=== PATIENT | male | born 1990 | race Hispanic/Latino ===

== ENCOUNTER 2023-06-28 06:35 | Day surgery (SDC) | payer BC ==
[2023-06-28] MEDS ORDERED: Ringers Lactate 1,000 ML IV ONE (07:09)
[2023-06-28] MEDS ORDERED: OXYMETAZOLINE HCL 0.05% 15ML NAS ONE (07:09)
[2023-06-28] MEDS: OXYMETAZOLINE HCL 0.05% 15ML NAS ONE ×4 (07:20→08:59)
[2023-06-28] MEDS ORDERED: NA CHLORIDE 0.9% 1,000 ML ONE (08:05)
[2023-06-28] MEDS ORDERED: NA CHLORIDE 0.9% 500 ML ONE (08:05)
[2023-06-28] MEDS: LIDOCAINE HCL/EPINEPHRINE 20 ML MDV ONE ×2 (08:12→08:59)
[2023-06-28] MEDS ORDERED: propofoL 200 MG/20 ML VIAL IV ONE (08:19)
[2023-06-28] MEDS ORDERED: ONDANSETRON 4 MG/2 ML VIAL ONE (08:19)
[2023-06-28] MEDS ORDERED: dexAMETHasone 10 MG/ML VIAL ONE (08:19)
[2023-06-28] MEDS ORDERED: ROCURONIUM 50 MG/5 ML VIAL IV ONE (08:19)
[2023-06-28] MEDS ORDERED: LIDOCAINE 2% MPF 5 ML VIAL ONE (08:19)
[2023-06-28] MEDS ORDERED: MIDAZOLAM HCL 2 MG/2 ML INJ ONE (08:19)
[2023-06-28] MEDS ORDERED: KETOROLAC 30 MG/ML INJ ONE (08:19)
[2023-06-28] MEDS ORDERED: FENTANYL CITR 100 MCG/2 ML ONE (08:19)
[2023-06-28] MEDS ORDERED: LANO/MINERAL OIL/PETRO 3.5 GM ONE (10:26)
--- NOTE | 2023-06-28 10:42 | P.OP ---
Medical Coding Instructor: NONE,NONE Preoperative diagnosis: Deviated nasal septum, inferior turbinate hypertrophy, enrico amadeo bullosa Postoperative diagnosis: Same Primary procedure: Septoplasty Secondary procedure: Nasal endoscopy with bilateral amadeo bullosa resection Other procedure(s): Inferior turbinate reduction via superficial ablation Anesthesia: General Estimated blood loss: 20 mL Specimen: Middle turbinate and septal fragments Findings: Deviated septum, turbinate hypertrophy, amadeo bullosa as expected Operative Technique: After adequate plane of anesthesia, the head of bed was turned 90 degrees. The nasal cavity was examined with a nasal speculum and headlight. Nasal hairs were trimmed. There is a significant inferior septal spur on the left with posterior right bony septal deviation. The turbinates were well decongested with preoperative application of Afrin. The septum and inferior turbinates were injected with 1% lidocaine with epinephrine. A total of 4 mL was used. A 0 degree endoscope was used to perform a nasal endoscopy and the appearance of the inferior turbinates was documented and enlarged as demonstrated and expected based on preoperative imaging. The head of the middle turbinates were injected with a small amount of lidocaine with epinephrine. A sickle knife was used to make an incision along the anterior aspect of the left middle turbinate. The endoscopic scissors were then used to cut along the inferior and superior aspect and the lateral aspect of the amadeo bullosa was removed using Blakesley forceps. Small amount of redundant mucosa was trimmed using a through cut Blakesley forcep. A Afrin-soaked pledget was placed into the middle meatus to aid in hemostasis. After removal, the area was inspected and the middle meatus appeared significantly more open following this resection. A similar procedure was performed on the right side. The head of the right middle turbinate was injected with a small amount of lidocaine with epinephrine. A sickle knife was used to make an incision along the anterior inferior aspect of the right middle turbinate. The endoscopic scissors was used to cut along the inferior aspect. A Blakesley was used to remove the bony fragments from the lateral aspect of the amadeo bullosa. A through cut forcep was used to trim and remove a small additional amount of excessive mucosa. An Afrin-soaked pledget was placed in the middle meatus to aid in hemostasis. Pledgets were left in place in the bilateral middle meatus while the additional procedures were performed. A left hemitransfixion incision was made through the mucosa and a Taliaferro elevator was used to elevate bilateral mucosal flaps from the cartilage and bony septum. In the left inferior anterior aspect, the cartilage was displaced into the nasal cavity. The most significant portion of the deviation was more than 1 cm from the caudal edge of the cartilage. A scalpel was used to trim and remove this portion of the cartilage which significantly improved the left nasal airway. A rasp was used to smooth the bony edge in this area. The caudal elevator was then used to make an incision in the posterior aspect of the cartilaginous septum near the bony cartilaginous junction. A Her rongeur was used to remove the deviated portion of the posterior bony septum which significantly improved the right nasal airway. The hemitransfixion incision was then closed in a running fashion using resorbable sutures. Quilting sutures were applied to the cartilaginous septum to help reapproximate the mucosal flaps to the cartilage. The pledgets were removed from the middle meatus and attention was turned to the middle turbinates. The low power radiofrequency Vivaer handpiece was then used to perform submucosal ablation to the bilateral middle turbinate, applying energy for 15 seconds at various sites along the height and length of the left and right middl e turbinate after appropriate and intermittent reapplication of water-based gel. The nasal valve was also remodeled using the same handpiece. The handpiece was applied in the area of the nasal valve with outward and upward distraction of the soft tissues. The energy was applied for 18 seconds with a 12-second period of relaxation at 4 separate sites along the nasal valve region on both the right and left side. After inspection, there was no significant bleeding. The nasopharynx was suctioned. Overall the nasal airway appeared significantly improved. A Posisep dissolvable nasal dressing was placed with in the right and left nasal cavity, extending into the middle meatus. The dressing was then thoroughly saturated with sterile saline. An orogastric tube was passed for removal of sto mach contents which was minimal. The patient was then returned to care of anesthesia for awakening extubation in the operating room which proceeded without difficulty. Complications: None Implants: Posisep bilateral nasal cavity Fluids & blood products: Crystalloid, see anesthesia record Transferred to: Recovery Room Condition: Good
[2023-06-28] MEDS: HYDROMORPHONE HCL 1 MG/ML INJ ONE ×2 (10:45→10:53)
[2023-06-28] MEDS ORDERED: HYDROMORPHONE HCL 1 MG/ML INJ ONE (11:12)
[2023-06-28 13:47] VITALS: O2SAT 100
[2023-06-28 14:08] VITALS: BP 139/78; TEMP 97.8
== END 2023-06-28 12:25 | disposition home or self-care (01) ==
LOC: OR 06:35
PROVIDERS: ATTEND Otolaryngology
PROC: 09JK8ZZ Inspection of Nasal Mucosa and Soft Tissue, Via Natural or Artificial Opening Endoscopic (ICD-10-PCS; 2023-06-28)
PROC: 09SM4ZZ Reposition Nasal Septum, Percutaneous Endoscopic Approach (ICD-10-PCS; 2023-06-28)
PROC: 09JK8ZZ Inspection of Nasal Mucosa and Soft Tissue, Via Natural or Artificial Opening Endoscopic (ICD-10-PCS; principal; 2023-06-28 08:15)
DX: J34.2 Deviated nasal septum (principal); J34.89 Other specified disorders of nose and nasal sinuses; J34.3 Hypertrophy of nasal turbinates
CPT/HCPCS: 30140; 31240; 30520; 88304; J2704; J2001; J2250; J3010; J1100; J1170 ×2; J2405; J7120; J7040; J7030